=== PATIENT | female | born 1950 ===

== ENCOUNTER 2023-02-10 09:08 | Outpatient (CLI) | payer BC | END 2023-02-10 14:15 | disposition home or self-care (01) | LOC: LAB 09:08 | DX: D64.9 Anemia, unspecified (principal); E03.8 Other specified hypothyroidism; N95.1 Menopausal and female climacteric states; I10 Essential (primary) hypertension; C51.9 Malignant neoplasm of vulva, unspecified; N30.00 Acute cystitis without hematuria; E83.51 Hypocalcemia; A64 Unspecified sexually transmitted disease; N39.0 Urinary tract infection, site not specified; R97.8 Other abnormal tumor markers; R79.89 Other specified abnormal findings of blood chemistry; E55.9 Vitamin D deficiency, unspecified; A60.9 Anogenital herpesviral infection, unspecified; Z12.11 Encounter for screening for malignant neoplasm of colon ==

== ENCOUNTER 2024-06-04 12:13 | Outpatient (CLI) | payer BC | END 2024-06-04 12:17 | disposition home or self-care (01) | LOC: TOM 12:13 | PROVIDERS: ATTEND Internal Medicine | DX: D56.9 Thalassemia, unspecified (principal); I10 Essential (primary) hypertension; G62.9 Polyneuropathy, unspecified; Z12.11 Encounter for screening for malignant neoplasm of colon; J06.9 Acute upper respiratory infection, unspecified; J40 Bronchitis, not specified as acute or chronic ==

== ENCOUNTER 2024-06-10 16:51 | Inpatient (IN) | payer OTHER, BC ==
[~2024-06-10] VITALS: Ht 152.4 cm; Wt 68.0 kg
[2024-06-10] MEDS ORDERED: ROSUVASTATIN CAL5 MG PO (17:13)
[2024-06-10] MEDS ORDERED: OMEGA-3 ACID ETH1 GM PO (17:13)
--- NOTE | 2024-06-10 17:17 | NUR ---
SE RECIBE PTE ALERTA Y ORIENTADA X3 CUAL REFIERE HOY EN LA OFICIAN DE ANDERSEN TOSIN. PRESENTO PALPITACIONES. SE REALIZA EKG, SE NANCY S/V Y SE UBICA.
[2024-06-10] MEDS ORDERED: DILTIAZEM HCL 25 MG/5 ML VIAL IV ONE ×2 (17:45→17:49)
[2024-06-10] MEDS ORDERED: 0.9 % SODIUM CHLORIDE 1,000 ML IV SCH (17:45)
--- NOTE | 2024-06-10 18:03 | NUR ---
SE CONECTA PACIENTE A MONITOR CARDIACO Y OXIMETRIA DE PULSO. SE CANALIZA Y COLECTAN MUESTRAS DE LABORATORIO MEDIANTE MEDIDAS ASEPTICAS. SE ADMINISTRAN MEDICAMENTOS ZOE ORDEN MEDICA.
[2024-06-10 18:06] LABS: HEMATOCRIT 33.5 % (36.0-45.00); HEMOGLOBIN 10.7 g/dL (12.0-15.00); MEAN CORPUSCULAR HEMOGLOBIN 20.4 pg (27.00-32.0); PLATELET COUNT 186 K/uL (150-450); RED BLOOD COUNT 5.26 M/uL (4.00-6.00); RED CELL DISTRIBUTION WIDTH 18.2 % (11.5-14.5)
[2024-06-10 18:13] LABS: MEAN CELL VOLUME 63.7 fL (80.00-100.00)
[2024-06-10] MEDS ORDERED: DILTIAZEM HCL 125 MG in 0.9 % SODIUM CHLORIDE 125 ML IV SCH (18:15)
[2024-06-10 18:31] LABS: ALBUMIN 3.9 gm/dL (3.4-5.0); BILIRUBIN TOTAL 1.29 mg/dL (0.3-1.2); CALCIUM 8.9 mg/dL (8.5-10.1); CREATININE SERUM 0.82 mg/dL (0.55-1.02); GFR 68.15; GLOBULINA 3.1 G/DL (2.4-3.5); POTASSIUM 4.12 mEq/L (3.5-5.1)
[2024-06-10] MEDS ORDERED: DILTIAZEM HCL 125 MG in 0.9 % SODIUM CHLORIDE 100 ML IV SCH (19:00)
[2024-06-10] MEDS ORDERED: FAMOTIDINE/PF 20 MG in 0.9 % SODIUM CHLORIDE 8 ML IV PUSH SCH (19:16)
[2024-06-10] MEDS ORDERED: ACETAMINOPHEN 500 MG GEL..CAP PO PRN (19:30)
[2024-06-10 20:55] LABS: INR 1.13; PROTHROMBIN TIME 12.2 SECONDS (9.0-11.5)
[2024-06-10 20:58] LABS: D DIMER 1.58 MG/L; PARTIAL THROMBOPLASTIN TIME 20.4 SECONDS (22.0-34.0)
[2024-06-10] MEDS ORDERED: ENOXAPARIN SODIUM 80 MG/0.8 ML SYRINGE SUBCUTANEO SCH (21:00)
[2024-06-10 23:29] VITALS: BP 145/105; O2SAT 97
[2024-06-11] VITALS (20 sets, daily range): BP systolic 108–151; BP diastolic 68–115; O2SAT 91–100
[2024-06-11] MEDS ORDERED: ROSUVASTATIN 5 MG PO SCH (09:00)
[2024-06-11] MEDS ORDERED: CHLORHEXIDINE GLUCONATE 120 ML BOTTLE TOP ONE (11:57)
[2024-06-11] MEDS ORDERED: METOPROLOL TARTRATE 50 MG TABLET PO SCH (17:00)
[2024-06-11] MEDS ORDERED: FAMOTIDINE/PF 20 MG in 0.9 % SODIUM CHLORIDE 8 ML IV PUSH SCH (21:00)
[2024-06-12] VITALS (18 sets, daily range): BP systolic 100–129; BP diastolic 54–94; O2SAT 87–100
[2024-06-12] MEDS ORDERED: AMIODARONE HCL 200 MG TABLET PO SCH (17:00)
[2024-06-13] VITALS (11 sets, daily range): BP systolic 101–139; BP diastolic 59–98; O2SAT 92–100
[2024-06-13] MEDS ORDERED: AMIODARONE HCL 200 MG TABLET PO SCH (09:00)
[2024-06-13] MEDS ORDERED: METOPROLOL TARTRATE 50 MG TABLET PO SCH (09:00)
[2024-06-13] MEDS ORDERED: APIXABAN 5 MG TABLET PO SCH (09:00)
[2024-06-14 00:50] VITALS: BP 108/86; O2SAT 100
[2024-06-14 08:00] VITALS: BP 100/72; O2SAT 97
[2024-06-14] MEDS ORDERED: FAMOTIDINE/PF 20 MG/2 ML VIAL ONE ×2 (08:49→19:22)
[2024-06-14 16:47] VITALS: BP 112/77; O2SAT 97
[2024-06-15 00:52] VITALS: BP 119/80; O2SAT 95
[2024-06-15] MEDS ORDERED: FAMOTIDINE/PF 20 MG/2 ML VIAL ONE ×2 (08:31→20:00)
[2024-06-15 08:41] VITALS: BP 109/81
[2024-06-15] MEDS ORDERED: METOPROLOL TARTRATE 50 MG TABLET PO SCH (17:00)
[2024-06-15 17:05] VITALS: BP 134/79
[2024-06-16 00:57] VITALS: BP 112/78; O2SAT 94
[2024-06-16] MEDS ORDERED: FAMOTIDINE/PF 20 MG/2 ML VIAL ONE (07:48)
[2024-06-16 08:34] VITALS: BP 118/80
[2024-06-16] MEDS ORDERED: METOPROLOL TARTRATE 50 MG TABLET PO SCH (09:00)
[2024-06-16] MEDS ORDERED: METOPROLOL TARTRATE 100 MG TABLET PO SCH (09:00)
== END 2024-06-16 14:05 | disposition home or self-care (01) | DRG 310 ==
LOC: ER 16:51 → ICU 20:24 → ICU-2 20:24 → ICU 06-11 03:52 → MEDI 06-13 20:12
PROVIDERS: General Practice; ADMIT Internal Medicine; ATTEND Internal Medicine
PROC: B24BYZZ Ultrasonography of Heart with Aorta using Other Contrast (ICD-10-PCS; principal; 2024-06-10)
PROC: 4A12X4Z Monitoring of Cardiac Electrical Activity, External Approach (ICD-10-PCS; 2024-06-13)
DX: I48.20 Chronic atrial fibrillation, unspecified (principal); R00.0 Tachycardia, unspecified

== ENCOUNTER 2025-02-15 22:58 | Inpatient (IN) | payer BC ==
[~2025-02-15] VITALS: Ht 160 cm; Wt 63.5 kg
[~2025-02-15 22:58] MED LIST: OMEGA-3 ACID ETH1 GM PO; ROSUVASTATIN CAL5 MG PO
[2025-02-15] MEDS ORDERED: ACETAMINOPHEN 325 MG TABLET PO PRN (23:15)
[2025-02-15] MEDS ORDERED: DILTIAZEM HCL 125 MG in 0.9 % SODIUM CHLORIDE 100 ML IV SCH (23:15)
[2025-02-15] MEDS ORDERED: 0.9 % SODIUM CHLORIDE 1,000 ML IV SCH (23:15)
--- NOTE | 2025-02-15 23:16 | NUR ---
PTE CON RECORD HECHO A MANO.
[2025-02-16 00:06] VITALS: BP 115/73; O2SAT 97
[2025-02-16 05:00] VITALS: BP 127/81; O2SAT 97
[2025-02-16] MEDS ORDERED: FOLIC ACID 1 MG TABLET PO SCH (09:00)
[2025-02-16] MEDS ORDERED: APIXABAN 5 MG TABLET PO SCH (09:00)
[2025-02-16] MEDS ORDERED: AMLODIPINE BESYLATE 5 MG TABLET PO SCH (09:00)
[2025-02-16] MEDS ORDERED: METOPROLOL SUCCINATE 50 MG TAB.SR.24H PO SCH (09:00)
[2025-02-16 09:15] VITALS: BP 128/76; O2SAT 96
[2025-02-16] MEDS ORDERED: FAMOTIDINE/PF 20 MG/2 ML VIAL IV SCH (12:00)
[2025-02-16] MEDS ORDERED: METOPROLOL SUCCINATE 25 MG TAB.SR.24H PO SCH (17:00)
[2025-02-16 17:58] VITALS: BP 119/71; O2SAT 99
[2025-02-16] MEDS ORDERED: ROSUVASTATIN CALCIUM 10 MG TABLET PO SCH (21:00)
[2025-02-17 01:55] VITALS: BP 103/73
[2025-02-17] MEDS ORDERED: METOPROLOL SUCCINATE 50 MG TAB.SR.24H PO SCH (09:00)
[2025-02-17 11:31] VITALS: BP 121/77; O2SAT 97
[2025-02-17 18:05] VITALS: BP 106/68; O2SAT 100
[2025-02-18 01:00] VITALS: BP 110/66; O2SAT 99
[2025-02-18 09:32] VITALS: BP 119/76; O2SAT 96
== END 2025-02-18 11:49 | disposition home or self-care (01) | DRG 310 ==
LOC: ER 22:58 → MEDI 23:25
PROVIDERS: ADMIT Internal Medicine; ATTEND Internal Medicine
PROC: B246ZZZ Ultrasonography of Right and Left Heart (ICD-10-PCS; principal; 2025-02-15)
PROC: 4A12X4Z Monitoring of Cardiac Electrical Activity, External Approach (ICD-10-PCS; 2025-02-16)
DX: I48.20 Chronic atrial fibrillation, unspecified (principal); I10 Essential (primary) hypertension